=== PATIENT | male | born 1980 | race Two or more races ===

== ENCOUNTER 2022-09-13 19:19 | Emergency (ER) | payer OTHER ==
[~2022-09-13] VITALS: Ht 182.9 cm; Wt 108.9 kg
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
--- NOTE | 2022-09-13 21:29 | NUR ---
EMT AT BEDSIDE FOR ABRIL WRAP
--- NOTE | 2022-09-13 21:31 | NUR ---
Patient discharged to home in stable condition. Written and verbal after care instructions given. Patient verbalizes understanding of instruction. Pt ambulatory with a steady gait
[2022-09-13 22:20] VITALS: BP 122/78
== END 2022-09-13 21:31 | disposition home or self-care (01) ==
LOC: ER 19:22
DX: S93.602A Unspecified sprain of left foot, initial encounter (principal); W20.8XXA Other cause of strike by thrown, projected or falling object, initial encounter; Y93.89 Activity, other specified; Y92.89 Other specified places as the place of occurrence of the external cause; Y99.8 Other external cause status
CPT/HCPCS: 73610-TC; 73630-TC